=== PATIENT | female | born 1990 | race Caucasian/White ===

== ENCOUNTER 2017-05-25 15:51 | Inpatient (IN) ==
[2017-05-25] MEDS ORDERED: Famotidine 20 MG/2 ML VIAL IVP PRN (15:54)
[2017-05-25] MEDS ORDERED: *HR* Nalbuphine 20 MG/ML AMPUL IVP PRN (15:54)
[2017-05-25] MEDS ORDERED: Naloxone 0.4 MG/ML INJ IVP PRN (15:54)
[2017-05-25] MEDS ORDERED: Metoclopramide 10 MG/2 ML VIAL IVP PRN (15:54)
[2017-05-25] MEDS ORDERED: Ringers Solution, Lactated 1,000 ML IVC SCH (16:00)
[2017-05-25 16:47] LABS: Amphetamine Screen,Urine Negative ng/mL (Cutoff=1000); Barbiturate Screen,Urine Negative ng/mL (Cutoff=200); Benzodiazepines Screen,Urine Negative ng/mL (Cutoff=200); Cannabinoid Screen,Urine Negative ng/mL (Cutoff = 50); Cocaine Screen,Urine Negative ng/mL (Cutoff= 300); Opiate Screen,Urine Negative ng/mL (Cutoff=300); Phencyclidine Screen,Urine Negative ng/mL (Cutoff=25)
[2017-05-25 16:49] LABS: Basophils # 0.1 K/mcL (0.0-0.2); Basophils % 0.4 %; Eosinophils # 0.1 K/mcL (0.0-0.6); Hematocrit 33.4 % (35.3-44.9); Hemoglobin 11.6 g/dL (11.5-15.4); Immature Granulocytes % 0.5 % (0-4); Lymphocytes # 1.6 K/mcL (0.6-4.6); Lymphocytes % 14.6 %; Mean Corpuscular HGB Conc 34.7 g/dL (31.6-35.5); Mean Corpuscular Hemoglobin 30.5 pg (28.0-33.3); Mean Corpuscular Volume 87.9 fL (83.0-100.0); Mean Platelet Volume 11.4 fL (9.4-12.4); Monocytes # 0.8 K/mcL (0.0-1.3); Monocytes % 7.3 %; Neutrophils # 8.5 K/mcL (1.6-8.9); Platelet Count 178 K/mcL (140-400); Red Cell Distribution Width 12.4 % (11.5-14.5); Segmented Neutrophils % 76.2 %
--- NOTE | 2017-05-25 16:54 | OB/GYN History & Physical ---
Date of Encounter: 05/25/17 Time of Encounter: 16:44 Assessment and Plan (1) 36 weeks gestation of Current visit: Yes Status: Acute Admit for IOL due to abnormal umbilical dopplers and IUGR. EFW 5lbs. GBS negative. Pt has a plan and desires to avoid medication for as long as possible. She does not desire an epidural. Plan for mercado induction. (2) IUGR (intrauterine growth restriction) Current visit: Yes Status: Acute See above History of Present Illness Chief complaint: abnormal umbilical dopplers HPI: Ms. Monson is a 27 year old female presenting at 36w5d from office for abnormal umbilical dopplers in the presence of asymmetric IUGR. She has a cyst on her left ovary that is thought to be a dermoid. It measures [id number] 1 week ago and has been stable in size. This has been otherwise uncomplicated. Blood type O positive Rubella immune Serologies and GBS negative. Past Med Surg Social Fam HX - Past Medical History Medical history: no medical history - Social History Smoking Status: Never smoker Smokeless Tobacco Status: No Alcohol use: none Drug use: none Obstetrical History - Pregnancies : 1 Medications and Allergies Ondansetron HCl [Zofran] 4 mg PO Q6-8H PRN 05/25/17 [History] Pnv Cmb#21/Iron/Folic Acid [ Complete Caplet] 1 each PO DAILY 05/25/17 [ History] 3 Allergy/AdvReac Type Severity Reaction Status Date / Time No Known Allergies Allergy Verified 11/03/16 10:22 Review of System OB All systems PM: reviewed and no additional remarkable complaints except as stated Exam - Constitutional Constitutional: well developed, well nourished, no acute distress - HEENT HEENT: Mucus Membranes Moist - Lungs Respiratory exam: CTAB - Cardiovascular Cardiovascular exam: RRR, +S1, +S2 - Abdomen Abdomen: Present: gravid, non tender - Extremities Extremities exam: normal inspection - Vulva Vulva: bilateral: normal - Vagina Vagina: Present: normal moisture - Cervix Dilation: 3 Effacement: 80 Station: -2 - Anus/Rectum Anus/Rectum: Present: normal perianal skin Results All other labs normal. - VTE Reasons for not Prescribing Prophylaxis: Treatment not Indicated - Low risk for VTE
[2017-05-25] MEDS ORDERED: Betamethasone Acet/SodPhos 6 MG/ML MDV IM SCH (17:00)
--- NOTE | 2017-05-25 17:28 | OB Labor Progress Note ---
Date of Encounter: 05/25/17 Time of Encounter: 17:26 Labor Progress Note - Subjective Subjective: Pt denies complaints at this time. - Cervix Cervix: 3/80/-2 - Heart Tones Heart Tones: Category I - [place]: none - Interventions Interventions: Barba balloon placed in cervix using sterile technique. Balloon inflated with 60ml sterile water. Pt tolerated well. Barba secured to pt's leg. - Plan Plan: Allow pt to ambulate and use birthing ball. Pt may use breastpump to stimulate contractions. Anticipate .
[2017-05-26] MEDS ORDERED: Oxytocin 20 units/ LR 1000 mL 20 UNIT/1,000 ML BAG IVC ONE (02:05)
--- NOTE | 2017-05-26 04:29 | OB/GYN Procedure Note ---
Delivery - Delivery Date: 05/26/17 Provider: Clarisse Rich Intrapartum events: none Delivery induction: mercado Delivery augmentation: rupture of membranes Delivery monitor: external FHT, external uterine Anesthesia: none Estimated Blood Loss: 100 - (s) Infant A Delivery Date: 05/26/17 Delivery Time: 04:04 Presentation: vertex Position: JOSH Route of delivery: Gender: Female Viability: Viable Pounds: 5 Ounces: 0 Weight Gram: 2.255 kg at 1 minute: 8 at 5 mins: 9 Shoulder Dystocia: not encountered Specimens collected: cord blood Placenta: spontaneous Cord: 3 umbilical vessels, other (short cord) - Repair Episiotomy: none Laceration Description: Perineal - 1st Degree - Complications Delivery complications: none Delivery comments: Pt progressed normally to for viable female weighing 5lbs with apgars 8 at one minute and 9 at five minutes. After a 2 minute delay the cord was clamped and cut and the was then placed on the maternal abdomen. The placenta delivered spontaneous and intact. A small first degree perineal laceration was repaired with 2-0 monocryl. Mother and baby stable in kangaroo care following procedure. - Disposition Mom disposition: stable in LDR disposition: stable in LDR
[2017-05-26] MEDS ORDERED: Oxytocin 20 units/ LR 1000 mL 20 UNIT/1,000 ML BAG IVC SCH (11:15)
[2017-05-26] MEDS ORDERED: Ibuprofen 600 MG TABLET PO PRN (11:15)
[2017-05-26] MEDS ORDERED: Acetaminophen 325 MG TABLET PO PRN (11:15)
[2017-05-26] MEDS ORDERED: Measles/Mumps/Rubella Vacc 0.5 ML VIAL SQ PRN (11:15)
[2017-05-27] MEDS ORDERED: Benzocaine/Menthol 56 GM AEROSOL SPRAY TP PRN (03:31)
[2017-05-27 09:00] VITALS: BP 117/81
[2017-05-27] MEDS ORDERED: Prenatal Vit/FA 1 EACH TABLET PO SCH (09:00)
--- NOTE | 2017-05-27 09:59 | Discharge Summary ---
Date of Encounter: 05/27/17 Time of Encounter: 09:56 - Discharge Diagnosis (1) Vaginal delivery Priority: Primary Status: Acute Comments: Pain well-managed on oral medication, bleeding slowed significantly, voiding without difficulty, rest feeding, desires discharge - Discharge Medications Prescriptions: Ibuprofen [Motrin] 600 mg PO Q6HR PRN #60 tablet PRN Reason: Cramping Home Medications: Pnv Cmb#21/Iron/Folic Acid [ Complete Caplet] 1 each PO DAILY 05/25/17 [ History] Acetaminophen [Tylenol] 650 mg PO Q6HR PRN tablet 05/27/17 [Rx] Benzocaine/Menthol [place] [Dermoplast [place]] 1 appl TP QID PRN aerosol 05/27/17 [Rx] Docusate [Colace] 100 mg PO BID capsule 05/27/17 [Rx] Ibuprofen [Motrin] 600 mg PO Q6HR PRN #60 tablet 05/27/17 [Rx] Vit/FA 1 each PO DAILY tablet 05/27/17 [Rx] Allergies/Adverse Reactions: 3 Allergy/AdvReac Type Severity Reaction Status Date / Time No Known Allergies Allergy Verified 11/03/16 10:22 Data Procedures and tests throughout hospitalization: Laboratory Tests 05/25/17 05/25/17 16:09 16:25 WBC 11.2 H RBC 3.80 L Hgb 11.6 Hct 33.4 L MCV 87.9 MCH 30.5 MCHC 34.7 RDW 12.4 Plt Count 178 MPV 11.4 Immature Gran % 0.5 Seg Neutrophils % 76.2 Lymphocytes % 14.6 Monocytes % 7.3 Eosinophils % 1.0 Basophils % 0.4 Neutrophils # 8.5 Lymphocytes # 1.6 Monocytes # 0.8 Eosinophils # 0.1 Basophils # 0.1 Urine Opiates Screen Negative Ur Barbiturates Screen Negative Ur Phencyclidine Scrn Negative Ur Amphetamines Screen Negative U Benzodiazepines Scrn Negative Urine Cocaine Screen Negative U Marijuana (THC) Screen Negative Date of admission: 05/25/17 15:51 Primary care physician: PCP NONE Consults: 05/26/17 11:15 Consult to Pump Room Operator [CONS] Routine Comment: Vaginal delivery, consult needed Discharging clinician: Erika Perez Anticipated date of discharge: 05/27/17 - Patient Status Disposition: Home, Self-Care Condition: Good Functional capacity at discharge: independent ambulation Overall status at discharge: patient is back to baseline - Discharge Instructions Follow Up With: NONE,PCP [Primary Care Provider] - - Diet and Activity Activity: resume usual activities as tolerated Diet: regular diet Hospital Course Reason for admission: IUP - , induction of labor Delivery: Episiotomy: none Laceration: 1st degree Other procedures: none complications: none Discharge diagnosis: delivery baby: female Hospital course: Delivery - Delivery Date: 05/26/17 Provider: Clarisse Rich Intrapartum events: none Delivery induction: mercado Delivery augmentation: rupture of membranes Delivery monitor: external FHT, external uterine Anesthesia: none Estimated Blood Loss: 100 - Infant (s) Infant A Infant Delivery Date: 05/26/17 Delivery Time: 04:04 Presentation: vertex Position: JOSH Route of delivery: Gender: Female Viability: Viable Pounds: 5 Ounces: 0 Weight Gram: 2.255 kg at 1 minute: 8 at 5 mins: 9 Shoulder Dystocia: not encountered Specimens collected: cord blood Placenta: spontaneous Cord: 3 umbilical vessels, other (short cord) - Repair Episiotomy: none Laceration Description: Perineal - 1st Degree - Complications Delivery complications: none Delivery comments: Pt progressed normally to for viable female weighing 5lbs with apgars 8 at one minute and 9 at five minutes. After a 2 minute delay the cord was clamped and cut and the was then placed on the maternal abdomen. The placenta delivered spontaneous and intact. A small first degree perineal laceration was repaired with 2-0 monocryl. Mother and baby stable in kangaroo care following procedure. - Disposition Mom disposition: stable in LDR Time Attestation: Total time spent providing and/or coordinating discharge services: Time Spent: Less than 30 minutes Exam - Constitutional Vitals: Temp Pulse Resp BP Pulse Ox 97.7 F 63 14 117/81 98 05/27/17 08:59 05/27/17 08:59 05/27/17 08:59 05/27/17 08:59 05/27/17 08:59 General appearance IM: A&O X 3 - Respiratory Respiratory exam: Present: CTAB - Cardiovascular Cardiovascular exam IM: Present: RRR - GI/Abdominal GI/Abdominal exam IM: normal bowel sounds, soft - Uterine Tone: Firm Uterus Position: At Umbilicus - Extremities Exam Extremities exam IM: Present: normal capillary refill, normal inspection - Neurological Exam Neurological exam: normal gait, oriented X3 - Psychiatric Additional comments: reports good mood
== END 2017-05-27 13:48 | disposition home or self-care (01) | DRG 775 ==
LOC: 1NENULAB 15:51 → 1NENUOBS 05-26 06:25
PROVIDERS: ADMIT Registered Nurse; ATTEND Registered Nurse

== ENCOUNTER → 2020-06-11 11:35 | Observation (INO) | END | disposition home or self-care (01) | LOC: 1NENULAB | PROVIDERS: ADMIT Registered Nurse; ATTEND Registered Nurse ==

== ENCOUNTER 2020-06-24 10:09 | Inpatient (IN) ==
[2020-06-24] MEDS ORDERED: *HR* Nalbuphine 10 MG/ML AMPUL IV PRN (10:55)
[2020-06-24] MEDS ORDERED: Famotidine 20 MG/2 ML VIAL IVP PRN (10:55)
[2020-06-24] MEDS ORDERED: Metoclopramide 10 MG/2 ML VIAL IVP PRN (10:55)
[2020-06-24] MEDS ORDERED: Naloxone 0.4 MG/ML INJ IVP PRN (10:55)
[2020-06-24] MEDS ORDERED: Ondansetron 4 MG/2 ML VIAL IVP PRN (10:55)
[2020-06-24] MEDS ORDERED: Ringers Solution, Lactated 1,000 ML IVC SCH (11:00)
[2020-06-24 11:11] LABS: Basophils # 0.1 K/mcL (0.0-0.2); Basophils % 0.6 %; Eosinophils # 0.1 K/mcL (0.0-0.6); Eosinophils % 0.7 %; Hematocrit 38.5 % (35.3-44.9); Hemoglobin 12.7 g/dL (11.5-15.4); Immature Granulocytes % 0.7 % (0-4); Lymphocytes # 1.7 K/mcL (0.6-4.6); Lymphocytes % 16.1 %; Mean Platelet Volume 11.9 fL (9.4-12.4); Monocytes # 0.6 K/mcL (0.0-1.3); Monocytes % 5.7 %; Neutrophils # 8.1 K/mcL (1.6-8.9); Platelet Count 165 K/mcL (140-400); Red Blood Count 4.23 M/mcL (3.82-4.97); Red Cell Distribution Width 12.3 % (11.5-14.5); Segmented Neutrophils % 76.2 %; White Blood Count 10.6 K/mcL (4.3-11.1)
[2020-06-24 11:18] LABS: Amphetamine Screen,Urine Negative ng/mL (Cutoff=1000); Barbiturate Screen,Urine Negative ng/mL (Cutoff=200); Benzodiazepines Screen,Urine Negative ng/mL (Cutoff=200); Cannabinoid Screen,Urine Negative ng/mL (Cutoff = 50); Cocaine Screen,Urine Negative ng/mL (Cutoff= 300); Opiate Screen,Urine Negative ng/mL (Cutoff=300); Phencyclidine Screen,Urine Negative ng/mL (Cutoff=25)
[2020-06-24] MEDS ORDERED: miSOPROStoL 25 MCG TABLET PO SCH (12:00)
[2020-06-24] MEDS ORDERED: Oxytocin 20 units/ LR 1000 mL 20 UNIT/1,000 ML BAG IVC SCH ×2 (16:00→19:03)
[2020-06-24] MEDS ORDERED: Oxytocin 20 units/ LR 1000 mL 20 UNIT/1,000 ML BAG IVC ONE (16:26)
[2020-06-24 17:52] LABS: Adenovirus Not Detected (Not Detect); Bordetella Pertussis Not Detected (Not Detect); Chlamydophila pneumoniae Not Detected (Not Detect); Coronavirus 229E Not Detected (Not Detect); Coronavirus HKU1 Not Detected (Not Detect); Coronavirus NL63 Not Detected (Not Detect); Coronavirus OC43 Not Detected (Not Detect); Human Metapneumovirus Not Detected (Not Detect); Human Rhinovirus/Enterovirus Not Detected (Not Detect); Influenza A Subtype 2009 H1 Not Detected (Not Detect); Influenza B Not Detected (Not Detect); Mycoplasma pneumoniae Not Detected (Not Detect); Parainfluenza Virus 1 Not Detected (Not Detect); Parainfluenza Virus 2 Not Detected (Not Detect); Parainfluenza Virus 3 Not Detected (Not Detect); Parainfluenza Virus 4 Not Detected (Not Detect); Respiratory Syncytial Virus Not Detected (Not Detect); SARS-CoV-2 Not Detected (Not Detect)
[2020-06-24] MEDS ORDERED: Acetaminophen 325 MG TABLET PO PRN (19:03)
[2020-06-24] MEDS ORDERED: *HR* HYDROcodone/Acet 5/325 mg TABLET PO PRN (19:03)
[2020-06-24] MEDS ORDERED: Lanolin 7 G OINT...G. TP PRN (19:03)
[2020-06-24] MEDS ORDERED: Ibuprofen 600 MG TABLET PO PRN (19:03)
[2020-06-24] MEDS ORDERED: Benzocaine/Menthol 56 GM AEROSOL SPRAY TP PRN (19:03)
[2020-06-25 07:29] VITALS: BP 135/98
[2020-06-25] MEDS ORDERED: Prenatal Vit/FA 1 EACH TABLET PO SCH (09:00)
== END 2020-06-25 19:06 | disposition home or self-care (01) | DRG 807 ==
LOC: 1NENULAB 10:09 → 1NENUOBS 21:20
PROVIDERS: ADMIT Advanced Practice Midwife; ATTEND Advanced Practice Midwife